=== PATIENT | female | born 1965 | race Two or more races ===

== ENCOUNTER 2025-01-09 15:58 | Emergency (ER) | payer OTHER ==
[~2025-01-09] VITALS: Ht 157.5 cm; Wt 51.3 kg
[2025-01-09] MEDS ORDERED: PLAVIX75 MG PO (17:22)
[2025-01-09] MEDS ORDERED: NORVASC2.5 M1 PO (17:22)
[2025-01-09] MEDS ORDERED: CRESTOR40 MG PO (17:22)
[2025-01-09] MEDS ORDERED: CONTRAVE ER 8-1 EACH PO (17:23)
[2025-01-09] MEDS ORDERED: PROZAC10 MG PO (17:23)
[2025-01-09] MEDS ORDERED: ARMOUR THYROID30 M1 PO (17:24)
[2025-01-09] MEDS ORDERED: MECLIZINE HCL 25 MG TABLET PO ONE ×2 (17:45→17:53)
[2025-01-09] MEDS ORDERED: 0.9 % SODIUM CHLORIDE 1,000 ML IV SCH (17:45)
[2025-01-09 20:36] LABS: BASO % 0.9 % (0.1-1.2); EOS # 0.07 (0.04-0.54); EOS % 1.3 % (0.7-7.0); LYMPH # 2.05 (1.18-3.74); LYMPH % 37.1 % (19.3-53.1); MEAN PLATELET VOLUME 8.90 fl (9.4-12.4); MONO # 0.48 (0.24-0.82); MONO % 8.7 % (4.7-12.5); NEUT # 2.87 (1.56-6.13); NEUT % 51.8 % (34.0-71.1); RED CELL DISTRIBUTION WIDTH 12.0 % (11.6-14.4)
[2025-01-09 21:09] LABS: URINE APPEARANCE Turbid; URINE BILIRRUBIN Negative (NEGATIVE); URINE BLOOD Small; URINE COLOR Yellow; URINE GLUCOSE Negative (NEGATIVE); URINE KETONE Negative (NEGATIVE); URINE LEUKOCYTE Trace; URINE NITRATE Negative; URINE PROTEIN Negative (NEGATIVE); URINE UROBILINOGEN 0.2 E.U./dl
[2025-01-09 21:12] LABS: ALT/SGPT 32 U/L (12-78); AST/SGOT 21 U/L (15-37); BILIRUBIN TOTAL 0.43 mg/dL (0.3-1.2); BUN CREA RATIO 21 (7.0-25.0); CREATININE SERUM 0.67 mg/dL (0.55-1.02); GFR 90.40; GLOBULINA 3.3 G/DL (2.4-3.5); GLUCOSE FASTING 93 mg/dL (65-100); OSMOLALITY SERUM 283 MOSM/KG (275-295)
[2025-01-09 21:13] LABS: URINE BACTERIA 279.6 uL (0.0-1933); URINE EPITHELIAL CELLS 14.4 uL (0.0-38.8); URINE RBC 132.4 uL (0.0-20.8); URINE WBC 19.6 uL (0.0-23.2)
[2025-01-09 21:18] LABS: CKMB < 1.0 NG/ML (0.5-3.6)
[2025-01-09 21:21] LABS: URINE CAST 0.29 uL (0.0-1.40)
[2025-01-10] MEDS ORDERED: ANTIVERT25 M2 PO (00:16)
== END 2025-01-10 01:01 | disposition home or self-care (01) ==
LOC: ER 15:59
PROVIDERS: Student in an Organized Health Care Education/Training Program
DX: T75.3XXA Motion sickness, initial encounter (principal); R42 Dizziness and giddiness; Z88.2 Allergy status to sulfonamides; Z88.6 Allergy status to analgesic agent; I25.10 Atherosclerotic heart disease of native coronary artery without angina pectoris; E03.8 Other specified hypothyroidism